=== PATIENT | male | born 1980 | race Caucasian/White ===

== ENCOUNTER 2021-03-27 04:49 | Emergency (ER) | payer BC, SELFPAY ==
[2021-03-27 05:01] VITALS: BP 157/115; PULSE 87; RESP 16; TEMP 36; O2SAT 97; BMI 35.9
--- NOTE | 2021-03-27 05:10 | XRR_ITS ---
PROCEDURE INFORMATION: Exam: XR Chest Exam date and time: 03/27/2021 5:10 AM Age: 40 years old Clinical indication: Patient HX: Left arm pain and numbness. ; Additional info: Cp TECHNIQUE: Imaging protocol: XR of the chest. Views: 1 view. COMPARISON: No relevant prior studies available. FINDINGS: Lungs: Unremarkable. No consolidation. Pleural spaces: Unremarkable. No pleural effusion. No pneumothorax. Heart/Mediastinum: Unremarkable. No cardiomegaly. Bones/joints: Unremarkable. XR/XR chest 1V portable [id number] IMPRESSION: No acute findings.
--- NOTE | 2021-03-27 05:11 | ECG_ITS ---
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 Measurements Intervals [place] Rate: 76 P: 16 TN: 162 QRS: -7 QRSD: 79 T: 29 QT: 351 QTc: 397 Interpretive Statements SINUS RHYTHM No previous ECG available for comparison Electronically Signed On 03-27-2021 16:13:11 CDT by Tho Mueller M.D. [id number]
--- NOTE | 2021-03-27 05:14 | W.ED.EXTPRO ---
Documented by User: Torin Tejeda MD 03/27/21 05:39 HPI - Extremity Problem General: Chief complaint: Extremity Problem,Nontraumatic Stated complaint: numbness in L arm Time Seen by Provider: 03/27/21 04:57 Source: patient Mode of arrival: ambulatory Limitations: no limitations History of Present Illness: HPI Narrative: 40-year-old male who states he went to bed last night around midnight woke up this morning had a sharp pain in his left arm that radiated down his arm with numbness and tingling in his arm. He states he woke up roughly an hour and a half ago. He states the pain lasted for 30 minutes since resolved. He states he still has some numbness. He states the numbness is improved as well. He has no focal neurologic deficits. He denies any difficulty speaking or difficulty with vision. Denies any chest pain. States he is concerned of a heart attack because his father had a heart attack at a similar age as he is now. Complaint: extremity pain Associated symptoms: Deny chest pain, fever(s) or rash Review of Systems Const: Denies: fever(s), chills, body aches or change in appetite Eyes: Denies: blurry vision or eye discomfort ENMT: Denies: throat pain or dental pain Card: Denies: chest pain Resp: Denies: dyspnea GI: Denies: abdominal pain, nausea, vomiting or diarrhea : Denies: dysuria Musc: Reports: extremity pain Skin/Breast: Denies: rash Neuro: Reports: numbness in extremities Psych: Denies: depression Alessio/Lymph: Denies: easy bruising All/Imm: Denies: urticaria Physical Exam Const: COMMON NORMALS: no acute distress, patient oriented x3 and healthy appearing HENMT: COMMON NORMALS: normocephalic and atraumatic HEAD & SCALP: normocephalic and atraumatic Eye: COMMON NORMALS: Equal, round and reactive pupils present and EOMs intact bilaterally PUPIL: Yes Equal, round and reactive pupils present Neck/C-Spine: COMMON NORMALS: full ROM and supple Chest: COMMONS NORMALS: normal inspection of the chest and normal palpation of entire chest wall Resp: COMMON NORMALS: normal respiratory effort, No retractions, No use of accessory muscles and clear to auscultation bilaterally AUSCULTATION: clear to auscultation bilaterally Cardio: COMMON NORMALS: regular rate, regular rhythm and No murmurs present (Cardio) RATE: regular rate RHYTHM: regular rhythm GI: COMMON NORMALS: Normal to inspection, nondistended, normoactive bowel sounds present, Soft to palpation, non-tender and no masses PALPATION: Yes Soft to palpation Extremity: COMMON NORMALS: normal to inspection and full ROM Neuro: COMMON NORMALS: patient oriented x3, moves all extremities and no focal motor deficits Psych: COMMON NORMALS: mental status grossly normal, Normal thought process present and cooperative THOUGHT PROCESS: Normal thought process present Skin: COMMON NORMALS: no rashes or lesions noted and no wounds GENERAL SKIN EXAM: no rashes or lesions noted Course Vital Signs: Vital signs: Vital Signs Temperature 98.4 F 03/27/21 05:53 Pulse Rate 69 03/27/21 06:46 Respiratory Rate 17 03/27/21 06:46 Blood Pressure 137/98 03/27/21 06:46 Pulse Oximetry 99 03/27/21 06:46 MDM - Extremity (Nontraumatic) MDM Narrative: Medical decision making narrative: Presents here with left arm pain along with paresthesias. I believe this is likely due to compressions while sleeping on his arm his pain is resolved his paresthesias improving. He has no signs of a stroke. Will check EKG and troponins and care is turned over to Dr. Butts at this time to follow labs and disposition. Lab Data: Labs: Lab Results 03/27/21 03/27/21 03/27/21 Range/Units 05:40 05:40 05:40 WBC 7.3 (4.0-10.0) 10^3/ uL RBC 5.24 (4.1-5.3) 10^6/u L Hgb 15.2 (11.7-16.6) g/dL Hct 45.0 (42.0-52.0) % MCV 85.9 (80-94) fl MCH 29.0 (28.0-34.0) pg MCHC 33.8 (30.0-36.0) g/dL RDW 12.7 (12.1-15.1) % Plt Count 190 (130-400) 10^3/c mm MPV 8.9 (7.4-10.4) fL Neut % (Auto) 52.4 % Lymph % (Auto) 32.7 % [place] % (Auto) 10.2 % Eos % (Auto) 3.4 % Baso % (Auto) 1.0 % Neut # (Auto) 3.85 (1.8-7.7) 10^3/u L Lymph # (Auto) 2.4 (0.8-4.8) 10^3/u L [place] # (Auto) 0.8 (0.2-0.9) 10^3/u L Eos # (Auto) 0.3 (0.0-0.8) 10^3/u L Baso # (Auto) 0.1 (0.0-0.1) 10^3/u L Nucleated RBC % (a uto) 0 % Nucleated RBCs # 0.0 /100WBC Sodium 141 (136-145) mmol/L Potassium 3.5 (3.5-5.1) mmol/L Chloride 105 (98-107) mmol/L Carbon Dioxide 24 (22-29) mmol/L Anion Gap 15.5 (5-19) BUN 7 (6-20) mg/dL Creatinine 0.8 (0.7-1.2) mg/dL GFR Calculation 106.0 (90-130) mL/min Glucose 89 (65-115) mg/dL Calculated Osmolal ity 289 (285-295) mOsm/k g Calcium 9.4 (8.5-10.5) mg/dL Total Bilirubin 0.2 (0.15-1.2) mg/dL AST 16 (0-40) U/L ALT 22 (0-41) U/L Alkaline Phosphata se 102 (40-130) IU/L Troponin T Baselin e 6 (0-15) ng/L Troponin T 120 Min [place] (0-15) ng/L Delta Troponin T (0-10) ABS# Total Protein 6.8 (6.6-8.7) g/dL Albumin 4.0 (3.5-5.2) g/dL Globulin 2.8 (1.3-4.6) g/dL 03/27/21 Range/Units 07:41 WBC (4.0-10.0) 10^3/ uL RBC (4.1-5.3) 10^6/u L Hgb (11.7-16.6) g/dL Hct (42.0-52.0) % MCV (80-94) fl MCH (28.0-34.0) pg MCHC (30.0-36.0) g/dL RDW (12.1-15.1) % Plt Count (130-400) 10^3/c mm MPV (7.4-10.4) fL Neut % (Auto) % Lymph % (Auto) % [place] % (Auto) % Eos % (Auto) % Baso % (Auto) % Neut # (Auto) (1.8-7.7) 10^3/u L Lymph # (Auto) (0.8-4.8) 10^3/u L [place] # (Auto) (0.2-0.9) 10^3/u L Eos # (Auto) (0.0-0.8) 10^3/u L Baso # (Auto) (0.0-0.1) 10^3/u L Nucleated RBC % (a uto) % Nucleated RBCs # /100WBC Sodium (136-145) mmol/L Potassium (3.5-5.1) mmol/L Chloride (98-107) mmol/L Carbon Dioxide (22-29) mmol/L Anion Gap (5-19) BUN (6-20) mg/dL Creatinine (0.7-1.2) mg/dL GFR Calculation (90-130) mL/min Glucose (65-115) mg/dL Calculated Osmolal ity (285-295) mOsm/k g Calcium (8.5-10.5) mg/dL Total Bilirubin (0.15-1.2) mg/dL AST (0-40) U/L ALT (0-41) U/L Alkaline Phosphata se (40-130) IU/L Troponin T Baselin e (0-15) ng/L Troponin T 120 Min [place] 6.00 (0-15) ng/L Delta Troponin T 0 (0-10) ABS# Total Protein (6.6-8.7) g/dL Albumin (3.5-5.2) g/dL Globulin (1.3-4.6) g/dL Imaging Data^: CXR: Attestation: I personally reviewed and interpreted this imaging study as follows: My impression: no acute abnormality EKG Data^: EKG 1: Attestation: I personally reviewed and interpreted this EKG as follows: EKG interpretation date: 03/27/21 EKG interpretation time: 05:29 Interpretation: nsr hr [address] o r twave abnormalities qrs 79 qtc 382 Discharge Plan Discharge Patient Disposition: Home Clinical Impression: Arm pain, left, Paresthesia and pain of left extremity Condition: Stable Discharge Orders: Discharge ED (Routine); Ordered 03/27/21 Ordered By: Gui Zamora Discharge Diet: Advance as tolerated Discharge Activity: Resume usual activity Patient Instructions: Paresthesia (ED) Activity Restrictions/Additional Instructions: Return as needed. Followup with your PCP. Sign Out Sign Out Data: Patient Sign Out occurred on 03/27/21 at 05:57. Patient's care was discussed, and care was transferred from to Gui Zamora MD. Post-Handoff Eval: Patient care handoff received from Dr. Tejeda pending completion of evaluation and repeat troponin. EKG similar, troponin/delta troponin negative. Patient feels improved. I discussed the results of ED evaluation with the patient and explained that for increased certainty we would need a 6-hour troponin however likely not necessary based on symptoms, risk factors, and other history, the patient was comfortable with discharge. Return precautions, follow-up plan discussed. Patient verbalized understanding. All questions answered. Patient discharged in satisfactory condition. Gui Zamora MD Emergency Medicine Coding Level of Care Code ED Angledozer Operator for Chg Fwd Exam Comprehensive Documented by User: Gui Zamora MD 03/27/21 08:22 HPI - Extremity Problem General: Chief complaint: Extremity Problem,Nontraumatic Stated complaint: numbness in L arm Time Seen by Provider: 03/27/21 04:57 Course Vital Signs: Vital signs: Vital Signs Temperature 98.4 F 03/27/21 05:53 Pulse Rate 69 03/27/21 06:46 Respiratory Rate 17 03/27/21 06:46 Blood Pressure 137/98 03/27/21 06:46 Pulse Oximetry 99 03/27/21 06:46 MDM - Extremity (Nontraumatic) Lab Data: Labs: Lab Results 03/27/21 03/27/21 03/27/21 Range/Units 05:40 05:40 05:40 WBC 7.3 (4.0-10.0) 10^3/ uL RBC 5.24 (4.1-5.3) 10^6/u L Hgb 15.2 (11.7-16.6) g/dL Hct 45.0 (42.0-52.0) % MCV 85.9 (80-94) fl MCH 29.0 (28.0-34.0) pg MCHC 33.8 (30.0-36.0) g/dL RDW 12.7 (12.1-15.1) % Plt Count 190 (130-400) 10^3/c mm MPV 8.9 (7.4-10.4) fL Neut % (Auto) 52.4 % Lymph % (Auto) 32.7 % [place] % (Auto) 10.2 % Eos % (Auto) 3.4 % Baso % (Auto) 1.0 % Neut # (Auto) 3.85 (1.8-7.7) 10^3/u L Lymph # (Auto) 2.4 (0.8-4.8) 10^3/u L [place] # (Auto) 0.8 (0.2-0.9) 10^3/u L Eos # (Auto) 0.3 (0.0-0.8) 10^3/u L Baso # (Auto) 0.1 (0.0-0.1) 10^3/u L Nucleated RBC % (a uto) 0 % Nucleated RBCs # 0.0 /100WBC Sodium 141 (136-145) mmol/L Potassium 3.5 (3.5-5.1) mmol/L Chloride 105 (98-107) mmol/L Carbon Dioxide 24 (22-29) mmol/L Anion Gap 15.5 (5-19) BUN 7 (6-20) mg/dL Creatinine 0.8 (0.7-1.2) mg/dL GFR Calculation 106.0 (90-130) mL/min Glucose 89 (65-115) mg/dL Calculated Osmolal ity 289 (285-295) mOsm/k g Calcium 9.4 (8.5-10.5) mg/dL Total Bilirubin 0.2 (0.15-1.2) mg/dL AST 16 (0-40) U/L ALT 22 (0-41) U/L Alkaline Phosphata se 102 (40-130) IU/L Troponin T Baselin e 6 (0-15) ng/L Troponin T 120 Min [place] (0-15) ng/L Delta Troponin T (0-10) ABS# Total Protein 6.8 (6.6-8.7) g/dL Albumin 4.0 (3.5-5.2) g/dL Globulin 2.8 (1.3-4.6) g/dL 03/27/21 Range/Units 07:41 WBC (4.0-10.0) 10^3/ uL RBC (4.1-5.3) 10^6/u L Hgb (11.7-16.6) g/dL Hct (42.0-52.0) % MCV (80-94) fl MCH (28.0-34.0) pg MCHC (30.0-36.0) g/dL RDW (12.1-15.1) % Plt Count (130-400) 10^3/c mm MPV (7.4-10.4) fL Neut % (Auto) % Lymph % (Auto) % [place] % (Auto) % Eos % (Auto) % Baso % (Auto) % Neut # (Auto) (1.8-7.7) 10^3/u L Lymph # (Auto) (0.8-4.8) 10^3/u L [place] # (Auto) (0.2-0.9) 10^3/u L Eos # (Auto) (0.0-0.8) 10^3/u L Baso # (Auto) (0.0-0.1) 10^3/u L Nucleated RBC % (a uto) % Nucleated RBCs # /100WBC Sodium (136-145) mmol/L Potassium (3.5-5.1) mmol/L Chloride (98-107) mmol/L Carbon Dioxide (22-29) mmol/L Anion Gap (5-19) BUN (6-20) mg/dL Creatinine (0.7-1.2) mg/dL GFR Calculation (90-130) mL/min Glucose (65-115) mg/dL Calculated Osmolal ity (285-295) mOsm/k g Calcium (8.5-10.5) mg/dL Total Bilirubin (0.15-1.2) mg/dL AST (0-40) U/L ALT (0-41) U/L Alkaline Phosphata se (40-130) IU/L Troponin T Baselin e (0-15) ng/L Troponin T 120 Min [place] 6.00 (0-15) ng/L Delta Troponin T 0 (0-10) ABS# Total Protein (6.6-8.7) g/dL Albumin (3.5-5.2) g/dL Globulin (1.3-4.6) g/dL EKG Data^: EKG 2: Attestation: I personally reviewed and interpreted this EKG as follows: EKG interpretation date: 03/27/21 EKG interpretation time: 07:18 Interpretation: Twelve-lead EKG shows a regular sinus rhythm at a rate of 69. ND interval 160, QRS duration 81, QTc 401. Interpretation: Sinus rhythm. Similar to prior. Discharge Plan Discharge Patient Disposition: Home Clinical Impression: Arm pain, left, Paresthesia and pain of left extremity Condition: Stable Discharge Orders: Discharge ED (Routine); Ordered 03/27/21 Ordered By: Gui Zamora Discharge Diet: Advance as tolerated Discharge Activity: Resume usual activity Patient Instructions: Paresthesia (ED) Activity Restrictions/Additional Instructions: Return as needed. Followup with your PCP. Sign Out Sign Out Data: Patient Sign Out occurred on 03/27/21 at 05:57. Patient's care was discussed, and care was transferred from to Gui Zamora MD. Post-Handoff Eval: Patient care handoff received from Dr. Tejeda pending completion of evaluation and repeat troponin. EKG similar, troponin/delta troponin negative. Patient feels improved. I discussed the results of ED evaluation with the patient and explained that for increased certainty we would need a 6-hour troponin however likely not necessary based on symptoms, risk factors, and other history, the patient was comfortable with discharge. Return precautions, follow-up plan discussed. Patient verbalized understanding. All questions answered. Patient discharged in satisfactory condition. Gui Zamora MD Emergency Medicine Coding Level of Care Code ED Angledozer Operator for Chg Fwd Exam Comprehensive
[2021-03-27 05:50] LABS: Basophils # 0.1 10^3/uL (0.0-0.1); Eosinophils # 0.3 10^3/uL (0.0-0.8); Eosinophils % 3.4 %; Hemoglobin 15.2 g/dL (11.7-16.6); Lymphocytes # 2.4 10^3/uL (0.8-4.8); Lymphocytes % 32.7 %; Mean Corpuscular HGB Conc 33.8 g/dL (30.0-36.0); Mean Corpuscular Volume 85.9 fl (80-94); Mean Platelet Volume 8.9 fL (7.4-10.4); Monocytes # 0.8 10^3/uL (0.2-0.9); Monocytes % 10.2 %; Neutrophils # 3.85 10^3/uL (1.8-7.7); Neutrophils % 52.4 %; Nucleated Red Blood Cells % 0 %; Platelet Count 190 10^3/cmm (130-400); Red Blood Count 5.24 10^6/uL (4.1-5.3); Red Cell Distribution Width 12.7 % (12.1-15.1); White Blood Count 7.3 10^3/uL (4.0-10.0)
[2021-03-27 05:53] VITALS: BP 145/105; PULSE 78; RESP 22; TEMP 36.9; O2SAT 97
[2021-03-27 06:13] LABS: Troponin(5th) Baseline 6 ng/L (0-15)
[2021-03-27 06:14] LABS: Alanine Aminotransferase 22 U/L (0-41); Alkaline Phosphatase 102 IU/L (40-130); Anion Gap 15.5 (5-19); Aspartate Amino Transferase 16 U/L (0-40); Blood Urea Nitrogen 7 mg/dL (6-20); Calcium 9.4 mg/dL (8.5-10.5); Carbon Dioxide 24 mmol/L (22-29); Chloride 105 mmol/L (98-107); Creatinine Clr Calc Pharmacy 151.6945; Globulin 2.8 g/dL (1.3-4.6); Glucose 89 mg/dL (65-115); Osmolality Calculated 289 mOsm/kg (285-295); Potassium 3.5 mmol/L (3.5-5.1); Sodium 141 mmol/L (136-145); Total Bilirubin 0.2 mg/dL (0.15-1.2); Total Protein 6.8 g/dL (6.6-8.7)
[2021-03-27 06:46] VITALS: BP 137/98; PULSE 69; RESP 17; O2SAT 99
--- NOTE | 2021-03-27 06:47 | PC.NURSE ---
Received report assumed care. No changes noted from report. States Left arm is feeling better. Ambulatory to the bathroom. Steady gait. Continue to monitor. Draw Trop at 0740
--- NOTE | 2021-03-27 07:11 | ECG_ITS ---
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 Measurements Intervals [place] Rate: 69 P: 18 ME: 160 QRS: -6 QRSD: 81 T: 25 QT: 381 QTc: 411 Interpretive Statements SINUS RHYTHM No previous ECG available for comparison Electronically Signed On 03-27-2021 16:14:37 CDT by Tho Mueller M.D. [id number]
[2021-03-27 08:14] LABS: Troponin 5 2HR Delta 0 ABS# (0-10)
== END 2021-03-27 08:39 | disposition home or self-care (01) ==
PROVIDERS: Emergency Medicine; Emergency Provider Emergency Medicine
DX: R20.2 Paresthesia of skin (principal); M79.602 Pain in left arm
CPT/HCPCS: 71045; 80053; 84484; 85025; 93005; 99283